=== PATIENT | male | born 1935 ===

== ENCOUNTER 2020-09-07 05:20 | Day surgery (SDC) | payer OTHER ==
[~2020-09-07 05:20] MED LIST: COZAAR25 MG PO; GABAPENTIN400 MG PO; HYDROCHLOROTH12.5 MG PO; LEVO-T50 MCG PO; LIPITOR40 MG PO; TENORMIN25 MG PO
[2020-09-07] MEDS ORDERED: PERCOCET 5-3251 EACH PO (10:22)
[2020-09-07] MEDS ORDERED: ACETAMINOPHEN500 M1 PO (11:47)
[2020-09-07] MEDS ORDERED: ULTRAM50 MG PO (11:47)
== END 2020-09-07 18:15 | disposition home or self-care (01) ==
LOC: CIR.AMB 05:20
PROVIDERS: ATTEND Surgery
DX: N52.8 Other male erectile dysfunction (principal); Z20.822 Contact with and (suspected) exposure to COVID-19
CPT/HCPCS: 54405; C1813